=== PATIENT | male | born 1955 | race Caucasian/White ===

== ENCOUNTER 2022-01-23 12:06 | Emergency (ER) | payer BC, OTHER ==
[2022-01-23 12:18] VITALS: BP 148/82; PULSE 70; RESP 18; TEMP 97.4; BMI 19.5
[2022-01-23] MEDS ORDERED: LIDOCAINE HCL 2% JELLY 10 ML CARTRIDGE UR ONE (12:48)
[2022-01-23] MEDS ORDERED: LIDOCAINE HCL 2% JELLY 10 ML CARTRIDGE ONE (12:52)
[2022-01-23 13:48] LABS: BLOOD UREA NITROGEN 15.8 mg/dL (7-18); CALCIUM 9.4 mg/dL (8.5-10.1)
[2022-01-23 13:49] LABS: ALBUMIN 4.7 g/dl (3.4-5.0)
[2022-01-23 13:52] LABS: CREATININE 1.2 mg/dL (0.55-1.3)
[2022-01-23 13:53] LABS: TOT PROT 7.7 g/dl (6.4-8.2)
[2022-01-23 14:05] LABS: EPI CELLS 10 /uL (0-25.1); HYALINE CASTS 1 /uL (0-3.1); URINE APPEARANCE CLEAR; URINE BACTERIA 46 /uL (0-1359); URINE BILIRUBIN NEGATIVE (NEGATIVE); URINE COLOR YELLOW; URINE GLUCOSE (UA) NEGATIVE (NEGATIVE); URINE KETONE TRACE (NEGATIVE); URINE LEUK ESTERASE NEGATIVE (NEGATIVE); URINE NITRITE NEGATIVE (NEGATIVE); URINE PROTEIN 1+ (NEGATIVE); URINE RBC 49 /uL (0-23.9); URINE UROBILINOGEN 0.2 mg/dL (0.2-1.0); URINE WBC 7 /uL (0-25.8)
== END 2022-01-23 14:40 | disposition home or self-care (01) ==
LOC: JER 12:06
DX: R33.9 Retention of urine, unspecified (principal)
CPT/HCPCS: 36415; 80053; 81003; 87086; 99283-25

== ENCOUNTER 2022-02-18 14:39 | Emergency (ER) | payer OTHER ==
[2022-02-18 15:05] VITALS: BP 145/91; PULSE 20; RESP 20; TEMP 98; BMI 19.5
[2022-02-18] MEDS ORDERED: SULFAMETHOXAZOLE/TRIMETHOPRIM 800MG/160MG D.S. TABLET PO ONE (16:21)
[2022-02-18] MEDS ORDERED: SULFAMETHOXAZOLE/TRIMETHOPRIM 800MG/160MG D.S. TABLET ONE (16:40)
[2022-02-18 16:51] LABS: EPITHELIAL CELLS RARE /hpf
== END 2022-02-18 17:33 | disposition home or self-care (01) ==
LOC: FER 14:39
DX: T83.511A Infection and inflammatory reaction due to indwelling urethral catheter, initial encounter (principal); T83.091A Other mechanical complication of indwelling urethral catheter, initial encounter
CPT/HCPCS: 81003; 81015; 87086; 87186; 99283-25

== ENCOUNTER 2022-02-22 04:04 | Day surgery (SDC) | payer OTHER ==
[2022-02-20 16:05] VITALS: BMI 19.5
[2022-02-22] MEDS ORDERED: MIDAZOLAM HCL 2 MG/2 ML SINGLE DOSE VIAL ONE (15:52)
[2022-02-22] MEDS ORDERED: ceFAZolin SODIUM 1 GM VIAL IVPB ONE (15:55)
[2022-02-22] MEDS ORDERED: LIDOCAINE HCL 2% JELLY 10 ML CARTRIDGE ONE ×2 (16:04→16:14)
[2022-02-22] MEDS ORDERED: ONDANSETRON 4 MG/2 ML VIAL IVPUSH PRN (16:33)
[2022-02-22] MEDS ORDERED: LACTATED RINGERS SOLUTION 1,000 ML IV SCH (16:45)
[2022-02-22 18:30] VITALS: RESP 20; TEMP 97.2
[2022-02-22 18:34] VITALS: BP 132/80; PULSE 69
== END 2022-02-22 18:24 | disposition home or self-care (01) ==
LOC: JASU-SURG 04:04
PROVIDERS: ATTEND Urology
PROC: 0T7D8DZ Dilation of Urethra with Intraluminal Device, Via Natural or Artificial Opening Endoscopic (ICD-10-PCS; principal; 2022-02-22 15:00)
DX: N40.1 Benign prostatic hyperplasia with lower urinary tract symptoms (principal); R33.8 Other retention of urine
CPT/HCPCS: C9740; L8699; 94760

== ENCOUNTER 2024-10-09 19:19 | Emergency (ER) | payer OTHER ==
[2024-10-09 19:35] VITALS: BP 138/77; PULSE 76; RESP 16; TEMP 97.5; BMI 19.5
[2024-10-09 20:22] LABS: EPITHELIAL CELLS 0-5 /hpf
== END 2024-10-09 20:17 | disposition home or self-care (01) ==
LOC: FER 19:19
PROC: 0T9B70Z Drainage of Bladder with Drainage Device, Via Natural or Artificial Opening (ICD-10-PCS; principal; 2024-10-09)
DX: R33.9 Retention of urine, unspecified (principal)
CPT/HCPCS: 81003; 81015; 87086; 99284-25